=== PATIENT | male | born 1950 | race Two or more races ===

== ENCOUNTER → 2018-11-26 | Outpatient (CLI) | payer OTHER | END | disposition home or self-care (01) | LOC: SONOGRAMA 10:48 | DX: M12.871 Other specific arthropathies, not elsewhere classified, right ankle and foot (principal); M12.872 Other specific arthropathies, not elsewhere classified, left ankle and foot ==

== ENCOUNTER 2023-03-15 09:46 | Outpatient (CLI) | payer OTHER | END 2023-03-15 09:52 | disposition home or self-care (01) | LOC: SONOGRAMA 09:46 | PROVIDERS: ATTEND Chiropractor Sports Physician | DX: M25.611 Stiffness of right shoulder, not elsewhere classified (principal) ==